=== PATIENT | female | born 1960 | race Caucasian/White ===

== ENCOUNTER → 2017-11-22 | Day surgery (SDC) | payer MEDICAID ==
[~2017-11-22] VITALS: Ht 149.9 cm; Wt 71.2 kg
[~2017-11-22] MED LIST: BALANCED SALT IRRIG SOLN COMB1 500ML OP ONE; CHOL400C8 PO; CYCLOPENTOLATE HCL 1% OPHTH DROPS 2ML ONE; CYCLOPENTOLATE HCL 1% OPHTH DROPS 2ML RIGHTEYE SCH; HYALURONATE SODIUM 14 MG/ML 0.85ML SYRINGE IO ONE; LACTATED RINGERS 1,000 ML IV SCH; PHENYLEPHRINE HCL 10% OPHTH DROPS 5ML ONE; PHENYLEPHRINE HCL 10% OPHTH DROPS 5ML RIGHTEYE SCH; SOY155CA PO; TROPICAMIDE 1% OPHTH DROPS 15ML ONE; TROPICAMIDE 1% OPHTH DROPS 15ML RIGHTEYE SCH; [UNRECOGNIZED DRUG - CODE] PO
== END | disposition home or self-care (01) ==
LOC: OR 07:12
PROVIDERS: ATTEND Ophthalmology
DX: H25.011 Cortical age-related cataract, right eye (principal); Z53.9 Procedure and treatment not carried out, unspecified reason; D64.9 Anemia, unspecified; Z79.899 Other long term (current) drug therapy; Z90.710 Acquired absence of both cervix and uterus
CPT/HCPCS: J3490; J7120

== ENCOUNTER 2018-02-14 10:10 | Day surgery (SDC) | payer MEDICAID ==
[~2018-02-14] VITALS: Ht 151.8 cm; Wt 71.2 kg
[~2018-02-14 10:10] MED LIST changes: +BALANCED SALT IRRIG SOLN 15ML ONE; -BALANCED SALT IRRIG SOLN COMB1 500ML OP ONE; +CIPROFLOXACIN 0.3% OPHTH SOLN 2.5ML ONE; -CYCLOPENTOLATE HCL 1% OPHTH DROPS 2ML RIGHTEYE SCH; -HYALURONATE SODIUM 14 MG/ML 0.85ML SYRINGE IO ONE; -LACTATED RINGERS 1,000 ML IV SCH; +LIDOCAINE HCL/PF 2% 20 MG/ML 10ML VIAL ONE; +NEO/POLYMYX B SULF/DEXAMETH OPHTH OINT 3.5GM ONE; -PHENYLEPHRINE HCL 10% OPHTH DROPS 5ML RIGHTEYE SCH; +PREDNISOLONE ACETATE 1% OPHTH DROPS 1ML ONE; +TETRACAINE 0.5% OPHTH DROPS 4ML ONE; -TROPICAMIDE 1% OPHTH DROPS 15ML RIGHTEYE SCH; +[UNRECOGNIZED DRUG - CODE] PO
[2018-02-14] MEDS: TROPICAMIDE 1% OPHTH DROPS 15ML LEFTEYE SCH ×2 (11:25→13:22)
[2018-02-14] MEDS ORDERED: BALANCED SALT IRRIG SOLN COMB1 500ML OP NR (11:30)
[2018-02-14] MEDS ORDERED: LACTATED RINGERS 1,000 ML IV SCH (12:00)
[2018-02-14] MEDS ORDERED: PHENYLEPHRINE HCL 10% OPHTH DROPS 5ML LEFTEYE SCH (12:30)
[2018-02-14] MEDS ORDERED: CYCLOPENTOLATE HCL 1% OPHTH DROPS 2ML LEFTEYE SCH (12:30)
[2018-02-14] MEDS ORDERED: HYALURONATE SODIUM 14 MG/ML 0.85ML SYRINGE IO ONE (12:39)
[2018-02-14] MEDS ORDERED: FENTANYL CITRATE/PF 50MCG/ML 2ML VIAL ONE ×2 (12:45→13:05)
[2018-02-14] MEDS ORDERED: MIDAZOLAM HCL 2 MG/2 ML VIAL ONE ×2 (12:45→13:05)
[2018-02-14] MEDS ORDERED: CEFAZOLIN SODIUM 1000MG/VIAL ONE (12:48)
[2018-02-14] MEDS ORDERED: SODIUM CHLORIDE 0.9% 10ML VIAL ONE (12:48)
[2018-02-14] MEDS ORDERED: LABETALOL HCL 20MG/4ML CARPUJECT IV PRN (13:30)
[2018-02-14] MEDS ORDERED: HYDROMORPHONE HCL/PF 2MG/ML CPJ IV PRN (13:30)
[2018-02-14] MEDS ORDERED: ONDANSETRON HCL 4MG/2ML INJ IV PRN (13:30)
[2018-02-14] MEDS ORDERED: MEPERIDINE HCL/PF 25MG/ML CPJ IV PRN (13:30)
== END 2018-02-14 14:25 | disposition home or self-care (01) ==
LOC: OR 10:10
PROVIDERS: ATTEND Ophthalmology
DX: H25.89 Other age-related cataract (principal); H44.22 Degenerative myopia, left eye; I10 Essential (primary) hypertension; Z98.890 Other specified postprocedural states; Z79.899 Other long term (current) drug therapy
CPT/HCPCS: 65920; A4216; J0690; J2250; J3010; J3490